=== PATIENT | male | born 1945 | race Asian ===

== ENCOUNTER 2024-03-10 14:30 | Emergency (ER) | payer MEDICARE, OTHER, SELFPAY ==
[2024-03-10 14:47] VITALS: BP 164/105
[2024-03-10 15:10] LABS: % Eosinophils 0.1 % (0-6); % Immature Granulocytes 0.4 % (0-0.5); % Lymphocytes 26.8 % (20.5-51.1); % Monocytes 11.4 % (1.7-9.3); % Neutrophils 61.3 % (42.2-75.2); Absolute Immature Granulocytes 0.1 10^3/uL (0-0.05); Absolute Lymphocytes 3.6 10^3/uL (1.2-3.4); Absolute Monocytes 1.5 10^3/uL (0.1-0.6); Absolute Neutrophils 8.3 10^3/uL (1.4-6.5); Hematocrit 38.8 % (39.0-52.0); Hemoglobin 13.3 g/dL (13.0-18.0); Mean Corp Hgb Conc. 34.3 g/dL (33.0-37.0); Mean Corpuscular Hgb 32.4 pg (27.0-31.0); Mean Corpuscular Volume 94.6 fL (80.0-94.0); Nucleated Red Blood Cells % 0 % (-); Platelet Count 216 10^3/uL (130-400); Red Cell Dist. Width 15.2 % (11.5-14.5); White Blood Cell Count 13.6 10^3/uL (4.8-10.8)
[2024-03-10 16:47] LABS: ALT (SGPT) 21 U/L (0-50); AST (SGOT) 32 U/L (17-59); Albumin 4.4 g/dl (3.5-5.0); Alkaline Phosphatase 48 U/L (38-126); Blood Urea Nitrogen 36 mg/dl (9-20); Calcium 9.7 mg/dl (8.4-10.2); Carbon Dioxide 22 mmol/L (22-30); Chloride 103 mmol/L (98-107); Glucose 75 mg/dl (70-99); Potassium 4.7 mmol/L (3.5-5.1); Sodium 136 mmol/L (135-145); Total Bilirubin 0.6 mg/dl (0.2-1.3); Total Protein 6.5 g/dl (6.3-8.2); eGFR 30.28
[2024-03-10 17:00] VITALS: BP 193/95
--- NOTE | 2024-03-10 17:28 | ED.GENMED ---
History of Present Illness
General
Chief Complaint: Fainting/Passed Out
Time Seen by Provider: 03/10/24 16:30
History of Present Illness
History of Present Illness:
78-year-old male with history of multiple myeloma and chronic kidney disease presents to the emergency department for evaluation of a syncopal event that occurred after getting out of the shower this afternoon. He apparently fell backwards and
struck his left frontal scalp on the ground. He currently has complaints of mild neck and low back discomfort as well as a small laceration to the right lateral hand. Denies any vision changes, chest pain, or shortness of breath
Past History
Past History
ED Past Medical History: Cancer (Multiple myeloma), HTN, Hypothyroidism and Other (multiple myeloma)
ED Past Surgical History: None
Social History
Tobacco: Non-smoker
Alcohol: None
Drug: None
Living: with family
Employment: Retired
Family History
Family History: Other (n/c)
Review of Systems
Review of Systems
Allergies reviewed?: Yes
All Other Systems: ROS reviewed and negative except as documented in HPI and ROS
Phy Exam
Physical Exam
Physical Exam:
GEN: Well appearing, NAD, WDWN
HEENT: 3 cm left parietal scalp hematoma with no crepitus oral mucosa moist, no scleral icterus, no nasal congestion. Mild bilateral neck tenderness, no midline tenderness
Cardiac: Regular rate
Lung: No respiratory distress, no tachypnea
MSK: No gross deformity or injuries, minimal low midline lumbar spine tenderness, no crepitus
Skin: Good color, no pallor or jaundice, no rashes
Neuro: AO x3; CN II-XII grossly intact. BUE strength 5/5 in all shepherd, sensation intact and symmetric. BLE strength 5/5 in all shepherd, sensation intact and symmetric
Psych: Calm, cooperative
Course
Orders/Labs/Results
Orders:
Orders
03/10/24 14:52
EKG [Electrocardiogram (*1)] Urgent
Reason for Study: Syncope
EKG- Treatment ONCE
03/10/24 14:[address] [CT Head W/o Iv Contrast] Urgent
Comment:
Reason For Exam: fall head injury
03/10/24 15:02
Complete Blood Count/With Diff Urgent
Comprehensive Metabolic Panel Urgent
03/10/24 17:25
CR Cervical Spine 4 Or 5 Vw Urgent
Comment:
Reason For Exam: fall neck pain
CR Lumbar Spine Comp Min 4 Vw* Urgent
Comment:
Reason For Exam: low back pain fall
03/10/24 17:26
0.9% Sodium Chloride 500 ml [Nss] 500 ml IV BOLUS
Abnormal Lab Results
03/10/24
15:02
WBC 13.6 H 10^3/uL
(4.8-10.8)
RBC 4.10 L 10^6/uL
(4.70-6.10)
Hct 38.8 L %
(39.0-52.0)
MCV 94.6 H fL
(80.0-94.0)
MCH 32.4 H pg
(27.0-31.0)
RDW 15.2 H %
(11.5-14.5)
MPV 12.0 H fL
(7.4-10.4)
Abs Immat Gran (auto) 0.1 H 10^3/uL
(0-0.05)
Absolute Neuts (auto) 8.3 H 10^3/uL
(1.4-6.5)
Absolute Lymphs (auto) 3.6 H 10^3/uL
(1.2-3.4)
Absolute Monos (auto) 1.5 H 10^3/uL
(0.1-0.6)
Monocytes % 11.4 H %
(1.7-9.3)
BUN 36 H mg/dl
(9-20)
Creatinine 2.2 H mg/dL
(0.7-1.3)
03/10/24 15:02
03/10/24 15:02
Vital Signs
Initial and Last Documented VS:
Initial Vital Signs
Temp Pulse Resp BP Pulse Ox
98.0 F 94 18 164/105 100
03/10/24 14:47 03/10/24 14:47 03/10/24 14:47 03/10/24 14:47 03/10/24 14:47
Last Documented Vital Signs
Temp Pulse Resp BP Pulse Ox
98.0 F 93 18 181/106 100
03/10/24 14:47 03/10/24 17:32 03/10/24 17:15 03/10/24 18:43 03/10/24 18:45
MDM/Problems Addressed
MDM/Problems Addressed:
Patient's labs reveal mild JAMISON superimposed on CKD. This is likely hypovolemic in nature. Patient feels well at this time and has no further dizziness. Imaging is unremarkable for acute osseous abnormality or intracranial hemorrhage. Discharged
in stable condition, do not see any indication for admission at this time
Comment
Comment:
EKG independently interpreted by me shows a sinus rhythm with PACs, some patient motion artifact limits interpretation., T wave inversion is also noted on 2018 EKG
*Critical Care Note
Total Time (30-74mins, 75-104mins- exclusive of procedures): Not Applicable
ED Attending Note
-
Portions of this chart may have been created with voice recognition software.� Occasional wrong word or��sound alike� substitutions may have occurred due to the inherent limitations of voice recognition software.
Discharge Plan
Departure
Patient Disposition: Home (Routine Discharge)
Date of Disposition: 03/10/24
Time of Disposition: 18:30
Patient with high blood pressure during this ER visit?: No
Discharge Problem:
Syncope, Hematoma of scalp, Acute dehydration
Instructions: Syncope (Fainting) (DC)
Prescriptions:
No Action
levothyroxine 25 MCG tablet
25 mcg PO DAILY
latanoprost 1 DROP drops
1 drp BOTH EYES HS
omeprazole 20 MG capsule,delayed release(DR/EC)
20 mg PO DAILYPRN PRN (Reason: acid reflex)
benzonatate 100 MG capsule
100 mg PO TIDPRN PRN (Reason: cough) Qty: 21 0RF
valacyclovir 500 MG tablet
500 mg PO DAILY@1000
acetaminophen [Tylenol Extra Strength] 500 MG tablet
500 mg PO BIDPRN PRN (Reason: pain,fever)
pravastatin 20 MG tablet
20 mg PO HS
cholecalciferol (vitamin D3) 1,000 UNITS tablet
1,000 units PO DAILY@1000
valsartan 80 MG tablet
160 mg PO DAILY Qty: 60 0RF
levofloxacin 250 MG tablet
250 mg PO DAILY Qty: 7 0RF
sodium chloride [Saline Nasal] 50 SPRAYS/45 ML aerosol,spray
0 sprays intranasal TID 0RF
Referrals:
Rogers Fernandez MD [Family Provider] -
Activity Restrictions/Additional Instructions:
Please increase fluids at home
Interventions
Interventions:
*ED COVID-19 Vaccine History Last Done: 03/10/24 14:47
*Nursing Disposition Last Done: 03/10/24 18:59
ED- Cardiac Assessment Last Done: 03/10/24 16:53
ED- Neurological Assessment Last Done: 03/10/24 16:53
Discharge Date and Time
Discharge Date/Time: 03/10/24 18:59
Print Language: Analisa
[2024-03-10 18:43] VITALS: BP 181/106
== END 2024-03-10 18:59 | disposition home or self-care (01) ==
LOC: EMR 14:30
PROVIDERS: Emergency Medicine; EMERGENCY PHYSICIAN Emergency Medicine; FAMILY PHYSICIAN Internal Medicine
DX: R55 Syncope and collapse (principal); S00.03XA Contusion of scalp, initial encounter; S61.411A Laceration without foreign body of right hand, initial encounter; M54.2 Cervicalgia; M54.50 Low back pain, unspecified; W18.39XA Other fall on same level, initial encounter; E86.0 Dehydration; I12.9 Hypertensive chronic kidney disease with stage 1 through stage 4 chronic kidney disease, or unspecified chronic kidney disease; N18.9 Chronic kidney disease, unspecified; C90.00 Multiple myeloma not having achieved remission; E03.9 Hypothyroidism, unspecified; Z88.8 Allergy status to other drugs, medicaments and biological substances
CPT/HCPCS: 99284; 70450; 72050; 72110; 80053; 85025; 93005

== ENCOUNTER → 2025-08-06 18:00 | Outpatient (REF) | payer MEDICARE, OTHER, SELFPAY | LOC: RAD 18:00 | PROVIDERS: ATTENDING PHYSICIAN Hospitalist | DX: J06.9 Acute upper respiratory infection, unspecified (principal) | CPT/HCPCS: 71046 ==